=== PATIENT | female | born 1970 | race Caucasian/White ===

== ENCOUNTER 2025-08-24 10:19 | Emergency (ER) | payer SELFPAY ==
[2025-08-24 10:56] LABS: BASOPHILS ABSOLUTE AUTO 0.06 K/uL (0.00-0.20); BASOPHILS PERCENT AUTO 0.6 % (0.0-1.0); EOSINOPHILS ABSOLUTE AUTO 0.34 K/uL (0.00-0.45); EOSINOPHILS PERCENT AUTO 3.5 % (0.0-6.0); IMMATURE GRAN ABSOLUTE AUTO 0.03 K/uL (0.00-0.05); IMMATURE GRAN PERCENT AUTO 0.3 % (0.0-0.4); LYMPHOCYTES ABSOLUTE AUTO 2.19 K/uL (1.00-4.80); LYMPHOCYTES PERCENT AUTO 22.4 % (24.0-44.0); MEAN PLATELET VOLUME 8.8 fL (9.4-12.3); MONOCYTES ABSOLUTE AUTO 0.61 K/uL (0.00-0.80); MONOCYTES PERCENT AUTO 6.3 % (0.0-8.0); NEUTROPHILS ABSOLUTE AUTO 6.53 K/uL (1.80-7.70); NEUTROPHILS PERCENT AUTO 66.9 % (41.0-71.0); NRBC ABSOLUTE 0.00 K/uL (0.00-0.02); NRBC PERCENT 0.0 /100WBC (0.0-0.2); PLATELET COUNT,PLT 300 K/uL (150-400); RED BLOOD CELL COUNT 4.40 M/uL (4.10-5.30); WHITE BLOOD CELL COUNT,WBC 9.76 K/uL (3.9-11.3)
[2025-08-24 11:30] LABS: A/G RATIO 1.1 (0.9-1.6); ALANINE AMINOTRANSFERASE,ALT 19.0 IU/L (14-63); ASPARTATE AMNIOTRANSFERASE,AST 17.0 IU/L (15-37); BILIRUBIN TOTAL 0.8 mg/dL (0.2-1.0); BLOOD UREA NITROGEN,BUN 10.0 mg/dL (7.0-18.0); CARBON DIOXIDE,CO2 27.0 mmol/L (21.0-32.0); CHLORIDE,CL 104.0 mmol/L (98-107); CREATININE 0.8 mg/dL (0.6-1.0); EST CRCL DRUG DOSING (CG) 82.98 mL/min; GLUCOSE RANDOM 97.0 mg/dL (74-106); POTASSIUM,K 3.2 mmol/L (3.5-5.1); PROTEIN TOTAL,TP 7.1 g/dL (6.4-8.2); SODIUM,NA 141.0 mmol/L (136-145)
[2025-08-24 11:32] LABS: ESTIMATED GFR 89.0 mL/min (>60)
[2025-08-24] MEDS: Ketorolac 30 MG/ML SDV IVPUSH ONE (12:03)
[2025-08-24] MEDS: Iopamidol 755 Mg/ML 100 ML Bottle IVPUSH ONE (13:33)
[2025-08-24] MEDS: Acetaminophen/HYDROcodone 325-5 MG Tab PO ONE (14:52)
== END 2025-08-24 15:24 | disposition home or self-care (01) ==
LOC: MW.ED 10:19
DX: R07.89 Other chest pain (principal); I10 Essential (primary) hypertension; Z79.899 Other long term (current) drug therapy
CPT/HCPCS: 36415; 71045; 71275; 80053; 84484; 85025; 93005; 96374; 99285; A9270; J1885; Q9967; 93010; 99284

== ENCOUNTER 2025-09-12 13:32 | Emergency (ER) | payer SELFPAY ==
[2025-09-12] MEDS ORDERED: Sodium Chloride 0.9% 10 ML Syringe FLUSH PRN (13:45)
[2025-09-12] MEDS ORDERED: Sodium Chloride 0.9% 2.5 ML Syringe FLUSH PRN (13:45)
[2025-09-12] MEDS: Ketorolac 30 MG/ML SDV IVPUSH ONE (14:01)
[2025-09-12] MEDS: Ondansetron 4 MG/2 ML SDV IVPUSH ONE (14:02)
[2025-09-12 14:15] LABS: BASOPHILS ABSOLUTE AUTO 0.06 K/uL (0.00-0.20); BASOPHILS PERCENT AUTO 0.8 % (0.0-1.0); EOSINOPHILS ABSOLUTE AUTO 0.26 K/uL (0.00-0.45); EOSINOPHILS PERCENT AUTO 3.4 % (0.0-6.0); IMMATURE GRAN ABSOLUTE AUTO 0.01 K/uL (0.00-0.05); IMMATURE GRAN PERCENT AUTO 0.1 % (0.0-0.4); LYMPHOCYTES ABSOLUTE AUTO 1.88 K/uL (1.00-4.80); LYMPHOCYTES PERCENT AUTO 24.5 % (24.0-44.0); MEAN PLATELET VOLUME 8.9 fL (9.4-12.3); MONOCYTES ABSOLUTE AUTO 0.51 K/uL (0.00-0.80); MONOCYTES PERCENT AUTO 6.6 % (0.0-8.0); NEUTROPHILS ABSOLUTE AUTO 4.96 K/uL (1.80-7.70); NEUTROPHILS PERCENT AUTO 64.6 % (41.0-71.0); NRBC ABSOLUTE 0.00 K/uL (0.00-0.02); NRBC PERCENT 0.0 /100WBC (0.0-0.2); PLATELET COUNT,PLT 343 K/uL (150-400); RED BLOOD CELL COUNT 4.79 M/uL (4.10-5.30); WHITE BLOOD CELL COUNT,WBC 7.68 K/uL (3.9-11.3)
[2025-09-12 14:49] LABS: APPEARANCE,URINE CLOUDY; GLUCOSE,URINE NEGATIVE (NEGATIVE); OCCULT BLOOD,URINE LARGE (NEGATIVE)
[2025-09-12 14:58] LABS: EPITHELIAL CELLS,URINE FEW (NONE-FEW)
[2025-09-12] MEDS: Iopamidol 755 MG/ML 500 ML Multipack Bottle IVPUSH STA (15:00)
[2025-09-12 15:03] LABS: A/G RATIO 1.2 (0.9-1.6); ALANINE AMINOTRANSFERASE,ALT 24.0 IU/L (14-63); ASPARTATE AMNIOTRANSFERASE,AST 23.0 IU/L (15-37); BILIRUBIN TOTAL 0.9 mg/dL (0.2-1.0); BLOOD UREA NITROGEN,BUN 13.0 mg/dL (7.0-18.0); CARBON DIOXIDE,CO2 27.6 mmol/L (21.0-32.0); CHLORIDE,CL 103.0 mmol/L (98-107); CREATININE 1.0 mg/dL (0.6-1.0); EST CRCL DRUG DOSING (CG) 66.39 mL/min; GLUCOSE RANDOM 111.0 mg/dL (74-106); POTASSIUM,K 3.2 mmol/L (3.5-5.1); PRO B-TYPE NATRIUR PEPT,BNPPRO 28.0 pg/mL (0-125); PROTEIN TOTAL,TP 7.9 g/dL (6.4-8.2); SODIUM,NA 141.0 mmol/L (136-145); TSH ULTRASENSITIVE 1.41 uIU/mL (0.36-3.74)
[2025-09-12 15:04] LABS: ESTIMATED GFR 68.0 mL/min (>60)
== END 2025-09-12 16:14 | disposition home or self-care (01) ==
LOC: MW.ED 13:32
DX: K80.20 Calculus of gallbladder without cholecystitis without obstruction (principal); I10 Essential (primary) hypertension; Z75.3 Unavailability and inaccessibility of health-care facilities; Z79.899 Other long term (current) drug therapy
CPT/HCPCS: 36415; 71045; 71260; 74177; 80053; 81001; 83690; 83735; 83880; 84443; 84484; 85025; 96361; 96374; 96375; 99285; J1171; J1885; J2405; J7030; J7620; Q9967; 99283; A9270-GY

== ENCOUNTER 2025-09-25 06:08 | Day surgery (SDC) | payer SELFPAY ==
[~2025-09-25 06:08] MED LIST: ceFAZolin 2 GM in Water For Injection, Sterile 20 ML IV ONE
[2025-09-25] MEDS ORDERED: Scopalamine 1mg/3day Transdermal Patch TOP ONE (06:30)
[2025-09-25] MEDS ORDERED: Morphine 10 MG/ML SDV ONE (06:31)
[2025-09-25] MEDS ORDERED: fentaNYL 100 MCG/2 ML SDV ONE (06:31)
[2025-09-25] MEDS ORDERED: Magnesium Sulfate (4.06 MEQ/ML) 5 GM/10 ML SDV ONE (06:31)
[2025-09-25] MEDS ORDERED: Scopalamine 1mg/3day Transdermal Patch ONE (06:31)
[2025-09-25] MEDS ORDERED: Dexamethasone 4 MG/ML 5 ML MDV ONE (06:31)
[2025-09-25] MEDS ORDERED: Ondansetron 4 MG/2 ML SDV ONE ×2 (06:31→08:07)
[2025-09-25] MEDS ORDERED: dexmedeTOMIDine HCl 200 MCG/2 ML SDV ONE (06:31)
[2025-09-25] MEDS ORDERED: propofoL 1,000 MG/100 ML 200 ML ONE (06:42)
[2025-09-25] MEDS ORDERED: Ropivacaine 0.5% 5 MG/ML 30 ML SDV ONE ×2 (06:42→07:01)
[2025-09-25] MEDS: Lactated Ringers 1,000 ML IV SCH (07:01)
[2025-09-25] MEDS ORDERED: Ketamine HCL/NACL, ISO-OSM 50 MG/5 ML Syringe ONE (07:55)
[2025-09-25] MEDS ORDERED: Ondansetron 4 MG/2 ML SDV IVPUSH PRN (08:19)
[2025-09-25] MEDS ORDERED: Naloxone 0.4 MG/ML SDV IVPUSH PRN (08:19)
[2025-09-25] MEDS ORDERED: Albuterol 0.083% 2.5 MG/3 ML Neb Soln NEB PRN (08:19)
[2025-09-25] MEDS ORDERED: fentaNYL 50 MCG/ML SDV IVPUSH PRN (08:19)
[2025-09-25] MEDS ORDERED: propofoL 1,000 MG/100 ML 100 ML ONE (08:31)
[2025-09-25] MEDS ORDERED: Acetaminophen/HYDROcodone 325-5 MG Tab PO PRN (09:23)
[2025-09-25] MEDS ORDERED: droPERidol 2.5 MG/ML SDV ONE (09:23)
[2025-09-25] MEDS ORDERED: Lactated Ringers 1,000 ML IV SCH (09:30)
[2025-09-25] MEDS ORDERED: Ketorolac 30 MG/ML SDV ONE (09:51)
== END 2025-09-25 12:47 | disposition home or self-care (01) ==
LOC: MW.SDS 06:08
PROVIDERS: ATTEND Surgery
DX: K80.10 Calculus of gallbladder with chronic cholecystitis without obstruction (principal); I10 Essential (primary) hypertension; E66.9 Obesity, unspecified; Z68.38 Body mass index [BMI] 38.0-38.9, adult; Z79.899 Other long term (current) drug therapy
CPT/HCPCS: 47562; 64488; 81025; A9270; J0665; J1100; J1885; J2003; J2272; J2704; J2795; J3010; J3475; J7120; J7999; 00790; J0690; J2371; J2405; J2765; J3490